=== PATIENT | female | born 1975 | race African-American/Black ===

== ENCOUNTER 2017-10-09 16:56 | Emergency (ER) | payer OTHER ==
[~2017-10-09] VITALS: Ht 165.1 cm; Wt 65.8 kg
[2017-10-09 17:33] LABS: Basophils # (auto) 0 uL; Basophils % (auto) 0.4 % (0.0-2.0); Eosinophils # (auto) 0 uL; Eosinophils % (auto) 0.8 % (0.0-7.0); Hematocrit 33.7 % (36.0-46.0); Hemoglobin 11.2 g/dL (12.2-16.2); Lymphocytes # (auto) 0.7 uL; Lymphocytes % (auto) 17.4 % (10.0-50.0); Mean Corpuscular Hemoglobin 28.8 pg (28.0-32.0); Mean Corpuscular Hgb Conc. 33.3 g/dL (32.0-36.0); Mean Corpuscular Volume 86.5 fL (80.0-100.0); Monocytes # (auto) 0.3 uL; Neutrophils # (auto) 2.8 uL; Neutrophils % (auto) 73.4 % (37.0-80.0); Platelet Count (auto) 190 10^3/uL (140-450); Red Cell Distribution Width 15.7 % (11.8-14.3); White Blood Cell 3.8 10^3/uL (4.4-10.8)
[2017-10-09 17:47] LABS: INR 1.01 (0.9-1.15); Partial Thromboplastin Time 27.4 sec (22.64-33.71)
[2017-10-09 17:49] LABS: Albumin 3.5 g/dL (3.4-5.0); BUN/Creatinine Ratio 13.9; Calcium 8.2 mg/dL (8.5-10.1); Potassium 3.4 mmol/L (3.5-5.1)
[2017-10-09 17:51] LABS: Bilirubin, Total 0.2 mg/dL (0.2-1.0); Total Protein 8.6 g/dL (6.4-8.2)
[2017-10-09] MEDS ORDERED: LEVETIRACETAM 500 MG TAB PO ONE (22:30)
[2017-10-09] MEDS ORDERED: LORazepam 2MG/ML-1ML VIAL IV ONE (22:30)
[2017-10-10 01:58] VITALS: BP 128/82
== END 2017-10-10 01:57 | disposition home or self-care (01) ==
LOC: ER 16:56
DX: G40.909 Epilepsy, unspecified, not intractable, without status epilepticus (principal); I10 Essential (primary) hypertension; Z86.73 Personal history of transient ischemic attack (TIA), and cerebral infarction without residual deficits
CPT/HCPCS: 36415; 70450; 80053; 82542; 85025; 85610; 85730; 93005; 96374; 99285; J2060